=== PATIENT | male | born 1965 | race African-American/Black ===

== ENCOUNTER 2024-08-25 11:51 | Emergency (ER) | payer OTHER ==
[2024-08-25 12:27] VITALS: BMI 26.5
[2024-08-25 13:24] LABS: ABSOLUTE IMMATURE GRANULOCYTES 0.04 x10^3/uL (0.0-0.031); BASOPHILS # 0.05 x10^3/uL (0.01-0.08); EOSINOPHIL % 5.5 % (0.8-7.0); HEMATOCRIT 31.1 % (40.1-51.0); HEMOGLOBIN 9.9 g/dL (13.7-17.5); MCHC 31.8 g/dl (32.3-36.5); MEAN CELL VOLUME 88.4 fl (79.0-92.2); MEAN PLT VOLUME 10.9 fl (9.4-12.4); MONOCYTE # 0.91 x10^3/uL (0.30-0.82); MONOCYTE % 12.4 % (5.3-12.2); PLATELET COUNT 233 x10^3/uL (163-337); RDW 14.2 % (12.2-16.1)
[2024-08-25 13:44] LABS: POTASSIUM 4.8 mmol/L (3.5-5.1)
[2024-08-25 13:45] LABS: CALCIUM 9.5 mg/dL (8.5-10.1)
[2024-08-25 13:47] LABS: ALBUMIN 2.8 g/dl (3.4-5.0); BLOOD UREA NITROGEN 24.8 mg/dL (7-18); MAGNESIUM 1.8 mg/dL (1.8-2.4)
[2024-08-25 13:51] LABS: BILIRUBIN,TOTAL 10.7 mg/dL (0.2-1); TOT PROT 7.6 g/dl (6.4-8.2)
[2024-08-25 13:53] LABS: CREATININE 1.8 mg/dL (0.55-1.3)
[2024-08-25 13:59] LABS: ERYTHROCYTE SEDIMENTATION RATE 102 mm/hr (0-20)
[2024-08-25] MEDS: SODIUM CHLORIDE 0.9% 500 ML INFUS.BAG IV ONE (16:04)
[2024-08-25 17:51] LABS: HIV INTERPRETATION NEGATIVE (NEGATIVE)
[2024-08-25 17:53] LABS: HCV DIAGNOSTIC IN-HOUSE W/RFLX REACTIVE (NONREACTIVE)
[2024-08-25 21:19] VITALS: BP 138/89; PULSE 71; RESP 18; TEMP 100.6
== END 2024-08-25 21:20 | disposition short-term general hospital (02) ==
LOC: JER 11:51
DX: R51.9 Headache, unspecified (principal); R29.898 Other symptoms and signs involving the musculoskeletal system; M54.50 Low back pain, unspecified; F11.90 Opioid use, unspecified, uncomplicated; M25.561 Pain in right knee; M25.562 Pain in left knee; M25.551 Pain in right hip; M25.552 Pain in left hip; R26.2 Difficulty in walking, not elsewhere classified; Y99.0 Civilian activity done for income or pay
CPT/HCPCS: 36415; 70450-TC; 80053; 83735; 85025; 85651; 86140; 86803; 87389; 87522; 93005; 93010; 99285-25

== ENCOUNTER 2024-09-05 01:04 | Inpatient (IN) | payer OTHER ==
[2024-09-05 01:09] VITALS: BMI 26.9
[2024-09-05] MEDS ORDERED: NALOXONE HCL 0.4 MG/ML VIAL IVPUSH PRN (02:09)
[2024-09-05] MEDS ORDERED: guaiFENesin 600 MG TABLET.ER (FP) PO PRN (02:09)
[2024-09-05] MEDS ORDERED: IBUPROFEN 400 MG TABLET (FP) PO PRN (02:09)
[2024-09-05] MEDS ORDERED: MAGNESIUM HYDROX 2400MG/30ML ORAL SUSPENSION 30 ML CUP PO PRN (02:09)
[2024-09-05] MEDS ORDERED: POLYETHYLENE GLYCOL (HEALTHYLAX) 3350 17 GM PACKET PO PRN (02:09)
[2024-09-05] MEDS ORDERED: MAG HYDROX/AL HYDROX/SIMETH 30 ML UNIT-DOSE CUP PO PRN (02:09)
[2024-09-05] MEDS ORDERED: BENZOCAINE/MENTHOL (CHLORASEPTIC ) LOZENGE MM PRN (02:09)
[2024-09-05] MEDS ORDERED: ACETAMINOPHEN 325 MG TABLET (FP) PO PRN (02:09)
[2024-09-05] MEDS ORDERED: NICOTINE POLACRILEX 2 MG GUM BUC PRN (02:09)
[2024-09-05] MEDS ORDERED: NALOXONE (NARCAN) HCL 4 MG/0.1 ML SPRAY NS PRN (02:09)
[2024-09-05] MEDS ORDERED: LOPERAMIDE HCL 2 MG CAPSULE PO PRN (02:09)
[2024-09-05] MEDS ORDERED: BENZONATATE 200 MG CAPSULE PO PRN (02:09)
[2024-09-05] MEDS ORDERED: hydrOXYzine PAMOATE 25 MG CAPSULE (FP) PO ONE (02:47)
[2024-09-05] MEDS: hydrOXYzine PAMOATE 25 MG CAPSULE (FP) PO PRN (02:51)
[2024-09-05] MEDS ORDERED: NICOTINE 14 MG/24 HOURS TOPICAL PATCH TD ONE (09:58)
[2024-09-05] MEDS ORDERED: PRENATAL VITAMINS W/ FOLIC ACID TABLET (FP) PO ONE (09:58)
[2024-09-05] MEDS: PRENATAL VITAMINS W/ FOLIC ACID TABLET (FP) PO SCH (10:00)
[2024-09-05] MEDS: NICOTINE 14 MG/24 HOURS TOPICAL PATCH TD SCH (10:00)
[2024-09-05] MEDS ORDERED: SIMETHICONE 40 MG/0.6 ML BOTTLE PO PRN (10:07)
[2024-09-05] MEDS ORDERED: methaDONE HCL 40 MG DISPERSABLE TABLET PO SCH (10:15)
[2024-09-05] MEDS: PANTOPRAZOLE 40 MG TABLET PO SCH (11:45)
[2024-09-05] MEDS: THIAMINE 100 MG TABLET PO SCH ×2 (11:46→21:13)
[2024-09-05] MEDS: FOLIC ACID 1 MG TABLET (FP) PO SCH (11:46)
[2024-09-05] MEDS: LACTULOSE 20 GM/30 ML UDC (FOR ORAL USE ONLY) PO SCH (13:08)
[2024-09-05] MEDS: MELATONIN 5 MG TABLETS PO SCH (21:13)
[2024-09-06] MEDS: glipiZIDE 10 MG TABLET (FP) PO SCH (11:50)
[2024-09-06] MEDS: CALAMINE 8% TOPICAL LOTION 177 ML BOTTLE TP PRN (11:51)
[2024-09-06] MEDS: MIRTAZAPINE 15 MG TABLET (FP) PO SCH (21:06)
[2024-09-07] MEDS: IBUPROFEN 600 MG TABLET (FP) PO PRN (21:04)
[2024-09-11] MEDS: LISINOPRIL 10 MG TABLET PO SCH (09:45)
[2024-09-11 10:00] LABS: HEMATOCRIT 33.3 % (40.1-51.0); HEMOGLOBIN 10.2 g/dL (13.7-17.5); MCHC 30.6 g/dl (32.3-36.5); MEAN CELL VOLUME 92.2 fl (79.0-92.2); MEAN PLT VOLUME 12.2 fl (9.4-12.4); PLATELET COUNT 156 x10^3/uL (163-337); RDW 14.7 % (12.2-16.1)
[2024-09-11 10:04] LABS: POTASSIUM 4.2 mmol/L (3.5-5.1)
[2024-09-11 10:10] LABS: BLOOD UREA NITROGEN 16.2 mg/dL (7-18)
[2024-09-11 10:14] LABS: BILIRUBIN,TOTAL 2.4 mg/dL (0.2-1); TOT PROT 7.7 g/dl (6.4-8.2)
[2024-09-11 10:15] LABS: CALCIUM 10.1 mg/dL (8.5-10.1)
[2024-09-11 10:16] LABS: ALBUMIN 3.1 g/dl (3.4-5.0)
[2024-09-11 10:53] LABS: CREATININE 1.4 mg/dL (0.55-1.3)
[2024-09-11] MEDS: ACAMPROSATE CALCIUM 333 MG TABLET.DR PO SCH (13:57)
[2024-09-11] MEDS: CLOTRIMAZOLE 1% CREAM TP SCH (21:18)
[2024-09-12 06:50] VITALS: RESP 18
[2024-09-12] MEDS ORDERED: glipiZIDE 5 MG TABLET (FP) ONE (07:12)
[2024-09-15] MEDS: SIMETHICONE 80 MG TAB.CHEW (FP) PO PRN (09:51)
[2024-09-15] MEDS: MELATONIN 5 MG TABLETS PO SCH (21:10)
[2024-09-15] MEDS: MIRTAZAPINE 15 MG TABLET (FP) PO SCH (21:12)
[2024-09-18 11:40] LABS: POTASSIUM 4.2 mmol/L (3.5-5.1)
[2024-09-18 11:49] LABS: ALBUMIN 3.1 g/dl (3.4-5.0); BLOOD UREA NITROGEN 19.9 mg/dL (7-18)
[2024-09-18 11:53] LABS: CREATININE 1.4 mg/dL (0.55-1.3)
[2024-09-18 11:54] LABS: BILIRUBIN,TOTAL 1.6 mg/dL (0.2-1)
[2024-09-18 11:55] LABS: TOT PROT 7.6 g/dl (6.4-8.2)
[2024-09-19 06:55] VITALS: BP 145/90; PULSE 63; TEMP 96.7
== END 2024-09-19 10:43 | disposition home or self-care (01) | DRG 772 ==
LOC: YASAS 01:04 → Y5N 11:21
PROVIDERS: ADMIT Psychiatry & Neurology Pain Medicine; ATTEND Psychiatry & Neurology Pain Medicine
PROC: HZ42ZZZ Group Counseling for Substance Abuse Treatment, Cognitive-Behavioral (ICD-10-PCS; principal; 2024-09-05)
DX: F10.20 Alcohol dependence, uncomplicated (principal); F14.20 Cocaine dependence, uncomplicated; F11.20 Opioid dependence, uncomplicated; F12.20 Cannabis dependence, uncomplicated; F17.210 Nicotine dependence, cigarettes, uncomplicated; I10 Essential (primary) hypertension; E11.9 Type 2 diabetes mellitus without complications; Z79.84 Long term (current) use of oral hypoglycemic drugs; B35.3 Tinea pedis; R79.89 Other specified abnormal findings of blood chemistry; Z59.00 Homelessness unspecified
CPT/HCPCS: 36415; 80053; 80305; 82140; 82962; 85027